=== PATIENT | male | born 1935 | race Caucasian/White ===

== ENCOUNTER 2017-02-07 12:52 | Observation (INO) | payer MEDICARE ==
[~2017-02-07 12:52] MED LIST: NO HOME MEDS
[2017-02-07] MEDS ORDERED: ALEVE220 M3 PO (17:01)
[2017-02-07] MEDS ORDERED: PREDNISONE10 M1 PO (17:02)
[2017-02-07] MEDS ORDERED: ASPIRIN EC81 MG PO (17:02)
[2017-02-07] MEDS ORDERED: SINGULAIR10 M1 PO (17:03)
[2017-02-07] MEDS ORDERED: TENORMIN25 M1 PO (17:03)
[2017-02-08 06:31] LABS: BASO % 0.6 % (0-2); BASO ABSOLUTE COUNT 0.1 tho/cmm (0.0-0.2); EOS % 0.8 % (0-7); EOSINOPHIL ABSOLUTE COUNT 0.1 tho/cmm (0.0-0.7); HCT-HEMATOCRIT 35.7 % (36.0-53.5); HGB-HEMOGLOBIN 11.5 gm/dl (13.5-17.0); IMMATURE GRANULOCYTES ABSOLUTE 0.03 tho/cmm (0-0.03); IMMATURE GRANULOCYTES PERCENT 0.4 % (0-0.3); LYMPH % 13.8 % (20-45); LYMPH ABSOLUTE COUNT 1.1 tho/cmm (0.8-4.5); MCHC MEAN CORPUSCULAR HGB CONC 32.2 % (32.0-36.0); MCV (MEAN CELL VOLUME) 86.9 fl (82.0-96.0); MEAN PLATELET VOLUME 10.2 cmc (9.4-12.4); MONO % 5.9 % (0-12); MONOCYTE ABSOLUTE COUNT 0.5 tho/cmm (0.0-1.2); NEUTROPHIL ABSOLUTE COUNT 6.5 tho/cmm (1.6-8.0); NEUTROPHIL-AUTOMATED 6.5 tho/cmm (1.6-8.0); NEUTROPHILS % 78.5 % (40-80); PLATELET COUNT 267 tho/cmm (150-450); RED BLOOD COUNT 4.11 mil/cmm (4.40-5.70); RED CELL DISTRIBUTION WIDTH 14.6 % (12.4-16.4); WHITE BLOOD COUNT 8.3 tho/cmm (4.0-10.0)
[2017-02-08 06:53] LABS: BLOOD UREA NITROGEN 28 mg/dl (6-24); CALCIUM 8.6 mg/dl (8.5-10.5); CARBON DIOXIDE-VENOUS 24 mmol/L (22-32); CREATININE 1.11 mg/dl (0.60-1.30); GLUCOSE 112 mg/dL (70-110); eGFR VALUE FOR BLACK 71 mL/Min
[2017-02-08 07:07] LABS: ANION GAP 13 mmol/L (0-20); CHLORIDE 109 mmol/l (96-110); SODIUM 141 mmol/L (135-145)
[2017-02-09 06:17] LABS: INR 1.1 INR (0.9-1.1); PROTHROMBIN TIME 13.2 SECONDS (9.0-13.6)
[2017-02-09 06:27] LABS: BASO % 0.2 % (0-2); EOS % 0.1 % (0-7); HGB-HEMOGLOBIN 11.7 gm/dl (13.5-17.0); IMMATURE GRANULOCYTES ABSOLUTE 0.03 tho/cmm (0-0.03); IMMATURE GRANULOCYTES PERCENT 0.3 % (0-0.3); LYMPH % 13.1 % (20-45); LYMPH ABSOLUTE COUNT 1.1 tho/cmm (0.8-4.5); MCHC MEAN CORPUSCULAR HGB CONC 32.5 % (32.0-36.0); MCV (MEAN CELL VOLUME) 86.1 fl (82.0-96.0); MEAN PLATELET VOLUME 10.4 cmc (9.4-12.4); MONO % 6.3 % (0-12); MONOCYTE ABSOLUTE COUNT 0.5 tho/cmm (0.0-1.2); NEUTROPHIL ABSOLUTE COUNT 6.9 tho/cmm (1.6-8.0); NEUTROPHIL-AUTOMATED 6.9 tho/cmm (1.6-8.0); PLATELET COUNT 293 tho/cmm (150-450); RED BLOOD COUNT 4.18 mil/cmm (4.40-5.70); RED CELL DISTRIBUTION WIDTH 14.6 % (12.4-16.4); WHITE BLOOD COUNT 8.6 tho/cmm (4.0-10.0)
[2017-02-09 06:36] LABS: CHLORIDE 106 mmol/l (96-110); POTASSIUM 4.7 mmol/L (3.7-5.1); SODIUM 137 mmol/L (135-145)
[2017-02-09 06:42] LABS: PROCALCITONIN <0.05 ng/ml (0.05-0.09)
[2017-02-09 06:45] LABS: ANION GAP 12 mmol/L (0-20); BLOOD UREA NITROGEN 25 mg/dl (6-24); CALCIUM 8.5 mg/dl (8.5-10.5); CARBON DIOXIDE-VENOUS 24 mmol/L (22-32); CREATININE 1.04 mg/dl (0.60-1.30); GLUCOSE 105 mg/dL (70-110); MAGNESIUM 2.1 mg/dl (1.3-2.6); eGFR VALUE FOR BLACK 77 mL/Min
[2017-02-10 07:00] LABS: BASO % 0.4 % (0-2); EOS % 0.7 % (0-7); EOSINOPHIL ABSOLUTE COUNT 0.1 tho/cmm (0.0-0.7); HCT-HEMATOCRIT 38.2 % (36.0-53.5); HGB-HEMOGLOBIN 12.2 gm/dl (13.5-17.0); IMMATURE GRANULOCYTES ABSOLUTE 0.03 tho/cmm (0-0.03); IMMATURE GRANULOCYTES PERCENT 0.3 % (0-0.3); LYMPH % 24.4 % (20-45); LYMPH ABSOLUTE COUNT 2.4 tho/cmm (0.8-4.5); MCH (MEAN CORPUSCULAR HGB) 27.6 pg (28.0-32.0); MCHC MEAN CORPUSCULAR HGB CONC 31.9 % (32.0-36.0); MCV (MEAN CELL VOLUME) 86.4 fl (82.0-96.0); MEAN PLATELET VOLUME 10.2 cmc (9.4-12.4); MONO % 7.9 % (0-12); MONOCYTE ABSOLUTE COUNT 0.8 tho/cmm (0.0-1.2); NEUTROPHIL ABSOLUTE COUNT 6.5 tho/cmm (1.6-8.0); NEUTROPHIL-AUTOMATED 6.5 tho/cmm (1.6-8.0); NEUTROPHILS % 66.3 % (40-80); PLATELET COUNT 275 tho/cmm (150-450); RED BLOOD COUNT 4.42 mil/cmm (4.40-5.70); RED CELL DISTRIBUTION WIDTH 14.7 % (12.4-16.4); WHITE BLOOD COUNT 9.8 tho/cmm (4.0-10.0)
[2017-02-10 07:32] LABS: ANION GAP 9 mmol/L (0-20); BLOOD UREA NITROGEN 31 mg/dl (6-24); CALCIUM 8.8 mg/dl (8.5-10.5); CARBON DIOXIDE-VENOUS 29 mmol/L (22-32); CHLORIDE 108 mmol/l (96-110); CREATININE 1.25 mg/dl (0.60-1.30); GLUCOSE 84 mg/dL (70-110); POTASSIUM 4.3 mmol/L (3.7-5.1); SODIUM 142 mmol/L (135-145); eGFR VALUE FOR BLACK 61 mL/Min
[2017-02-10] MEDS ORDERED: XARELTO15 M1 PO (12:25)
[2017-02-10] MEDS ORDERED: SINGULAIR10 M1 PO (12:26)
[2017-02-10] MEDS ORDERED: TYLENOL325 M2 PO (12:26)
[2017-06-11] MEDS ORDERED: HYDROMET PO (14:08)
[2017-06-11] MEDS ORDERED: PREDNISONE10 M1 PO (14:08)
[2017-06-11] MEDS ORDERED: VENTOLIN HFA18 G2 INH (14:09)
== END 2017-02-10 14:00 ==
LOC: CTSCAN 12:52 → 5WF 16:30
PROVIDERS: Internal Medicine; ADMIT Hospitalist
PROC: 02HV33Z Insertion of Infusion Device into Superior Vena Cava, Percutaneous Approach (ICD-10-PCS; principal; 2017-02-08)
DX: I26.99 Other pulmonary embolism without acute cor pulmonale (principal); N17.9 Acute kidney failure, unspecified; G54.0 Brachial plexus disorders; I13.0 Hypertensive heart and chronic kidney disease with heart failure and stage 1 through stage 4 chronic kidney disease, or unspecified chronic kidney disease; I50.30 Unspecified diastolic (congestive) heart failure; I48.0 Paroxysmal atrial fibrillation; N18.2 Chronic kidney disease, stage 2 (mild); M19.90 Unspecified osteoarthritis, unspecified site; R63.4 Abnormal weight loss; R91.1 Solitary pulmonary nodule; Z23 Encounter for immunization; Z95.0 Presence of cardiac pacemaker; Z68.35 Body mass index [BMI] 35.0-35.9, adult
CPT/HCPCS: C1751; G0008; G0009; G0378; G0379; J1650; J1956; J7030; J7512; Q9967

== ENCOUNTER 2017-05-11 11:53 | Emergency (ER) | payer MEDICARE ==
[~2017-05-11 11:53] MED LIST changes: +ALEVE220 M3 PO; +ASPIRIN EC81 MG PO; +PREDNISONE10 M1 PO; +SINGULAIR10 M1 PO; +TENORMIN25 M1 PO; +TYLENOL325 M2 PO; +XARELTO15 M1 PO
[2017-05-11] MEDS ORDERED: XARELTO20 M1 PO (13:11)
[2017-05-11 13:54] LABS: BASO % 0.7 % (0-2); BASO ABSOLUTE COUNT 0.1 tho/cmm (0.0-0.2); EOS % 5.4 % (0-7); EOSINOPHIL ABSOLUTE COUNT 0.4 tho/cmm (0.0-0.7); HCT-HEMATOCRIT 35.5 % (36.0-53.5); HGB-HEMOGLOBIN 11.4 gm/dl (13.5-17.0); IMMATURE GRANULOCYTES ABSOLUTE 0.01 tho/cmm (0-0.03); IMMATURE GRANULOCYTES PERCENT 0.1 % (0-0.3); LYMPH % 21.1 % (20-45); LYMPH ABSOLUTE COUNT 1.7 tho/cmm (0.8-4.5); MCH (MEAN CORPUSCULAR HGB) 27.6 pg (28.0-32.0); MCHC MEAN CORPUSCULAR HGB CONC 32.1 % (32.0-36.0); MEAN PLATELET VOLUME 10.4 cmc (9.4-12.4); MONO % 9.8 % (0-12); MONOCYTE ABSOLUTE COUNT 0.8 tho/cmm (0.0-1.2); NEUTROPHIL ABSOLUTE COUNT 5.1 tho/cmm (1.6-8.0); NEUTROPHIL-AUTOMATED 5.1 tho/cmm (1.6-8.0); NEUTROPHILS % 62.9 % (40-80); PLATELET COUNT 109 tho/cmm (150-450); RED BLOOD COUNT 4.13 mil/cmm (4.40-5.70); WHITE BLOOD COUNT 8.1 tho/cmm (4.0-10.0)
[2017-05-11 14:13] LABS: BLOOD UREA NITROGEN 30 mg/dl (6-24); CALCIUM 8.3 mg/dl (8.5-10.5); CARBON DIOXIDE-VENOUS 26 mmol/L (22-32); CREATININE 1.55 mg/dl (0.60-1.30); GLUCOSE 89 mg/dL (70-110); eGFR VALUE FOR BLACK 47 mL/Min
[2017-05-11 14:44] LABS: ANION GAP 13 mmol/L (0-20); CHLORIDE 105 mmol/l (96-110); POTASSIUM 4.4 mmol/L (3.7-5.1); SODIUM 140 mmol/L (135-145)
[2017-05-11] MEDS ORDERED: CODEINE-GUAIFE120 M1 PO (15:15)
[2017-05-11] MEDS ORDERED: LEVAQUIN750 M1 PO (15:15)
[2017-06-11] MEDS ORDERED: PREDNISONE10 M1 PO (14:08)
[2017-06-11] MEDS ORDERED: HYDROMET PO (14:08)
[2017-06-11] MEDS ORDERED: VENTOLIN HFA18 G2 INH (14:09)
== END 2017-05-11 15:33 ==
LOC: EDMED 11:53
PROVIDERS: Emergency Medicine
DX: J18.9 Pneumonia, unspecified organism (principal); I13.0 Hypertensive heart and chronic kidney disease with heart failure and stage 1 through stage 4 chronic kidney disease, or unspecified chronic kidney disease; N18.9 Chronic kidney disease, unspecified; I50.9 Heart failure, unspecified; I25.10 Atherosclerotic heart disease of native coronary artery without angina pectoris; Z86.711 Personal history of pulmonary embolism; Z95.0 Presence of cardiac pacemaker; Z79.899 Other long term (current) drug therapy